=== PATIENT | male | born 1980 | race Caucasian/White ===

== ENCOUNTER 2019-02-21 15:56 | Outpatient (CLI) | payer BC | END 2019-02-21 16:30 | disposition home or self-care (01) | LOC: SLEEP 15:56 | PROVIDERS: ATTEND Internal Medicine Cardiovascular Disease | DX: G47.10 Hypersomnia, unspecified (principal); I10 Essential (primary) hypertension; R09.02 Hypoxemia ==

== ENCOUNTER 2019-05-09 20:49 | Outpatient (CLI) | payer BC | END 2019-05-10 06:00 | disposition home or self-care (01) | LOC: SLEEP 20:49 | PROVIDERS: ATTEND Otolaryngology Otolaryngology/Facial Plastic Surgery | DX: G47.33 Obstructive sleep apnea (adult) (pediatric) (principal); G47.36 Sleep related hypoventilation in conditions classified elsewhere; I49.9 Cardiac arrhythmia, unspecified | CPT/HCPCS: 95810 ==

== ENCOUNTER → 2019-11-29 | Outpatient (CLI) | payer BC | LOC: CARD 10:56 | PROVIDERS: ATTEND Internal Medicine | DX: I48.91 Unspecified atrial fibrillation (principal) | CPT/HCPCS: 93005 ==

== ENCOUNTER → 2020-04-17 | Outpatient (CLI) | payer BC | LOC: CARD 10:32 | PROVIDERS: ATTEND Internal Medicine | DX: I48.19 Other persistent atrial fibrillation (principal) | CPT/HCPCS: 93005 ==

== ENCOUNTER → 2020-06-25 | Outpatient (CLI) | payer BC | LOC: LABNPT 05:31 | PROVIDERS: ATTEND Internal Medicine | DX: Z53.9 Procedure and treatment not carried out, unspecified reason (principal) | CPT/HCPCS: 87635 ==

== ENCOUNTER → 2020-07-01 | Outpatient (CLI) | payer BC | LOC: LABNPT 08:34 | PROVIDERS: ATTEND Internal Medicine | DX: Z01.812 Encounter for preprocedural laboratory examination (principal); Z20.828 Contact with and (suspected) exposure to other viral communicable diseases | CPT/HCPCS: 87635 ==

== ENCOUNTER → 2020-07-01 | Outpatient (CLI) | payer BC ==
[2020-07-01 08:29] LABS: HEMOGLOBIN 16.4 g/dL (13.3-17.7); MEAN PLATELET VOLUME 11.4 fL (9.0-12.2); WHITE BLOOD COUNT 6.7 10^3/uL (4.3-11.0)
[2020-07-01 08:53] LABS: BUN/CREATININE RATIO 13; CALCIUM 9.3 MG/DL (8.5-10.1); CARBON DIOXIDE 23 MMOL/L (21-32); CHLORIDE 104 MMOL/L (98-107); GFR ESTIMATED > 60; GLUCOSE 107 MG/DL (70-105); MAGNESIUM 1.8 MG/DL (1.6-2.4); POTASSIUM 3.6 MMOL/L (3.6-5.0); SODIUM 138 MMOL/L (135-145)
== END ==
LOC: LAB 08:16
PROVIDERS: ATTEND Internal Medicine
DX: I48.19 Other persistent atrial fibrillation (principal)
CPT/HCPCS: 36415; 80048; 83735; 85027

== ENCOUNTER 2020-08-01 19:17 | Emergency (ER) | payer BC ==
[~2020-08-01] VITALS: Ht 185 cm; Wt 122.5 kg
--- NOTE | 2020-08-01 19:51 | ED Upper Extremity ---
General Chief Complaint: Laceration Stated Complaint: R LAYA LAC Source: patient Exam Limitations: no limitations History of Present Illness Date Seen by Provider: Aug 01, 2020 Time Seen by Provider: 19:40 Initial Comments This is a well-appearing 40-year-old male presented to the ER with complaints of accidentally putting his right hand through his back door window while trying to open. Rinsed hand immediately with running water and covered with clean dish towel. States he is on Eliquis daily for A-fib. Denies any other injury. Rates pain 0/10 at this time. Last tetanus unknown. Onset: just prior to arrival Pain/Injury Location: left other (Right MCP laceration ) Allergies and Home Medications Allergies Coded Allergies: No Known Drug Allergies (Unverified , 08/01/20) Patient Home Medication List Home Medication List Reviewed: Yes Review of Systems Constitutional: no symptoms reported EENTM: no symptoms reported Respiratory: no symptoms reported Cardiovascular: no symptoms reported Gastrointestinal: no symptoms reported Genitourinary: no symptoms reported Musculoskeletal: no symptoms reported Skin: see HPI Psychiatric/Neurological: No Symptoms Reported Past Rcptzbg-Ghtiaw-Nwxgrz Hx Patient Social History Recent Foreign Travel: No Contact w/Someone Who Travel: No Physical Exam Vital Signs Vital Signs - First Documented 08/01/20 08/01/20 19:40 21:21 Temp 36.3 Pulse 100 Resp 18 B/P (MAP) 175/99 (124) Pulse Ox 98 Capillary Refill : Height, Weight, BMI Height: '" Weight: lbs. oz. kg; BMI Method: General Appearance: WD/WN, no apparent distress HEENT: PERRL/EOMI Neck: full range of motion, normal inspection Cardiovascular: regular rate, rhythm, no murmur Respiratory: lungs clear, normal breath sounds Elbow/Forearm: normal inspection, non-tender, no evidence of injury Wrist: Yes normal inspection, Yes non-tender, Yes no evidence of injury Hand: Right (Right 2 cm laceartion just over his MCP, 0.5cm superficial laceration on medial aspect of right 3rd finger at the PIP. ), laceration Neurologic/Tendon: normal sensation, normal motor functions, normal tendon functions, no evidence tendon injury Neurologic/Psychiatric: no motor/sensory deficits, alert, normal mood/affect, oriented x 3 Skin: normal color, warm/dry Progress/Results/Core Measures Results/Orders My Orders Medications Given in ED Vital Signs/I&O Progress Progress Note : Progress Note Bleeding controlled with direct pressure. Radiographs ordered to see if any FB are retained. Tetanus updated today. X-ray of right hand shows no FB or fractures. Lacerations cleansed thoroughly with saline and chlorhexadine, tolerated well. Approximated wound edges of MCP lac. with 3 vertical mattress sutures (4-0 Nylon). Covered with HUNTER, non- adherent telfa, and kerlix. Reviewed discharge plan and he is agreeable with plan. Diagnostic Imaging Diagonstic Imaging: Xray Plain Films/CT/US/NM/MRI: hand Comments NAME: [facility] REC#: [id number] PT STATUS: REG ER : 1980 PHYSICIAN: JONNY LATIF [employer] SUPERINTENDENT ADMIT DATE: 08/01/20/ER Signed Date of Exam:08/01/20 HAND, RIGHT, 3 VIEWS INDICATION: Laceration with hitting hand through glass. EXAMINATION: Three views of the right hand were obtained. FINDINGS: There is no fracture. No radiopaque foreign body is demonstrated. IMPRESSION: Negative right hand. Dictated by: Dictated on workstation # [id number] Dict: 08/01/202010 Trans: 08/01/202017 PJE [id number] Interpreted by: OLVIN GRAVES MD Electronically signed by: OLVIN GRAVES MD 08/01/202017 Departure Impression Primary Impression: Laceration Disposition: 01 HOME, SELF-CARE Condition: Improved Departure-Patient Inst. Decision time for Depature: 21:09 Referrals: DARRON BISHOP MD (PCP/Family) Primary Care Physician Patient Instructions: Tetanus Toxoid (Adsorbed), Laceration Repair Add. Discharge Instructions: Plan: 1. Discharge home. Keep sutures clean and dry. May wash gently with soap and water, pat dry. No swimming or soaking. 2. May take Tylenol or Ibuprofen as needed for pain per package instructions. Avoid putting to much tension on your knuckles. Your smaller lacerations will heal on their own. 3. Monitor for signs of infection such as redness, swelling, fever. Return to ER in seven days to have sutures removed. 4. Return for any new or concerning symptoms. All discharge instructions reviewed with patient and/or family. Voiced understanding. JONNY LATIF [employer] SUPERINTENDENT Aug 01, 2020 19:51
--- NOTE | 2020-08-01 20:14 | Diagnostic Imaging Report ---
INDICATION: Laceration with hitting hand through glass. EXAMINATION: Three views of the right hand were obtained. FINDINGS: There is no fracture. No radiopaque foreign body is demonstrated. IMPRESSION: Negative right hand. Dictated by: Dictated on workstation # [id number]
[2020-08-01] MEDS ORDERED: TETANUS,DIPTH,PERTUSS P/F (BOOSTRIX) 0.5 ML VIAL IM ONE (20:15)
[2020-08-01] MEDS ORDERED: LIDOCAINE 1% INJ 20 ML 20 ML VIAL INJ ONE (20:30)
[2020-08-01 21:21] VITALS: BP 169/97
== END 2020-08-01 21:21 | disposition home or self-care (01) ==
LOC: EDUNIT# 19:17 → ER 19:19
DX: S61.212A Laceration without foreign body of right middle finger without damage to nail, initial encounter (principal); Z23 Encounter for immunization; W23.1XXA Caught, crushed, jammed, or pinched between stationary objects, initial encounter
CPT/HCPCS: 12041; 73130; 90715